=== PATIENT | female | born 1995 | race Caucasian/White ===

== ENCOUNTER 2018-02-13 00:01 | Emergency (ER) | payer BC, MEDICAID ==
[2018-02-13] MEDS ORDERED: METOCLOPRAMIDE HCL ORAL SOLN 10 MG/10 ML UDCUP PO ONE (02:23)
[2018-02-13] MEDS ORDERED: MAG HYDROX/AL HYDROX/SIMETH SUSP 30 ML UDCUP PO ONE (02:23)
[2018-02-13] MEDS ORDERED: LIDOCAINE 2% VISCOUS SOLN 20 ML UDCUP PO ONE (02:23)
--- NOTE | 2018-02-13 02:29 | ER Document Report ---
ED General - General Chief Complaint: Abdominal Pain Stated Complaint: ABDOMINAL PAIN Time Seen by Provider: 02/13/18 02:17 TRAVEL OUTSIDE OF THE [place] IN LAST 30 DAYS: No - HPI Notes: Patient is a 23-year-old female who presents to the ED complaining of epigastric pain 1 day. Patient states that her pain is made worse after eating barbecue. Patient states that she also has increased burning sensation when she lays flat. Patient states the pain does not radiate otherwise. Patient has not been taking any medicines for her symptoms. She did have one episode of vomiting this morning after eating a barbecue. Patient states that she has had a decreased appetite. She is urinating normally and having normal bowel movements. She denies any drug allergies or IV drug use. + smoker. Denies any other significant past medical history. Denies any headache, fever, URI, sore throat, chest pain, palpitations, syncope, cough, shortness of breath , wheeze, dyspnea, diarrhea, urinary retention, dysuria, hematuria, back pain, loss of control of bowel or bladder, numbness/tingling, saddle anesthesia, muscle paralysis/weakness, or rash. - Related Data Allergies/Adverse Reactions: No Known Allergies Allergy (Verified 03/20/16 12:20) Past Medical History - Social History Smoking Status: Current Some Day Smoker Chew tobacco use (# tins/day): No Frequency of alcohol use: None Drug Abuse: None Family History: Reviewed & Not Pertinent Patient has suicidal ideation: No Patient has homicidal ideation: No - Past Medical History Cardiac Medical History: Denies: Hx Hypertension Renal/ Medical History: Denies: Hx Peritoneal Dialysis Past Surgical History: Denies: Hx Hysterectomy - Immunizations Hx Diphtheria, Pertussis, Tetanus Vaccination: Yes Review of Systems - Review of Systems -: Yes All other systems reviewed and negative Physical Exam - Notes Notes: PHYSICAL EXAMINATION: GENERAL: Well-appearing, well-nourished and in no acute distress. HEAD: Atraumatic, normocephalic. EYES: Pupils equal round and reactive to light, extraocular movements intact, sclera anicteric, conjunctiva are normal. ENT: Nares patent and without discharge. oropharynx clear without exudates. No tonsilar hypertrophy or erythema. Moist mucous membranes. NECK: Normal range of motion, supple without lymphadenopathy LUNGS: Breath sounds clear to auscultation bilaterally and equal. No wheezes rales or rhonchi. HEART: Regular rate and rhythm without murmurs, rubs, gallops. ABDOMEN: Soft, nondistended abdomen. No guarding, no rebound. No masses appreciated. Normal bowel sounds present. No CVA tenderness bilaterally. + mild tenderness to the epigastrum. Segura negative. No tenderness at McBurney. Extremities: No cyanosis, clubbing, or edema b/l. Peripheral pulses 2+. Capillary refill less than 3 seconds. NEUROLOGICAL: Normal speech, normal gait. Normal sensory, motor exams PSYCH: Normal mood, normal affect. SKIN: Warm, Dry, normal turgor, no rashes or lesions noted. Course - Re-evaluation Re-evalutation: 02/13/18 04:30 Patient is an afebrile, well-hydrated, 23-year-old female who presents to the ED with epigastric pain, suspect probable GERD. Vitals are acceptable. PE is otherwise unremarkable. CBC, CMP, lipase, hCG, chest x-ray were unremarkable for any acute pathology. Patient's abdomen was soft and only tender in the epigastrium without Segura sign or tenderness at McBurney point. Patient is tolerating p.o. without difficulties. Patient was given a GI cocktail which did improve her symptoms. Low suspicion/risk for acute appendicitis, bowel obstruction, acute cholecystitis, acute cholangitis, perforated diverticulitis, incarcerated hernia, pancreatitis, perforated ulcer, peritonitis, sepsis, pelvic inflammatory disease, ectopic , tubo-ovarian abscess, ovarian torsion, or other systemic emergent condition at this time. Patient is aware that her condition can change from initial presentation and she needs to monitor symptoms closely and seek medical attention if any acute changes. I will send her home with a prescription for omeprazole as well as Carafate. Conservative measures otherwise for symptoms. Recheck with your PCM in 3-5 days. Consider consult with a automotive designer. Return to the ED with any worsening/concerning symptoms otherwise as reviewed in discharge. Patient is in agreement. - Laboratory Result Diagrams: 02/13/18 02:37 02/13/18 02:37 Laboratory results interpreted by me: 02/13/18 02:37 WBC 12.2 H Discharge - Discharge Clinical Impression: Epigastric abdominal pain Condition: Stable Disposition: HOME, SELF-CARE Instructions: Low-Fat Diet ([facility]) Additional Instructions: Maintain adequate fluid and food intake [place] diet ([facility].[employer] Bananas, rice, apples, toast, etc Avoid eating/drinking 2 hours before bed time Avoid spices, alcohol, caffeine, or other triggers Zofran as needed tylenol if needed Monitor for any worsening symptoms Make sure you are staying hydrated enough to urinate and have normal BM's Recheck with your PCM in 3-5 days Consider consult with Gastroenterology for ongoing/worsening symptoms Return to the ED with any worsening symptoms and/or development of fever, headache, chest pain, palpitations, syncope, shortness of breath, trouble breathing, abdominal pain, n/v/d, blood in stool/urine, weakness, or other worsening symptoms that are concerning to you. Prescriptions: Omeprazole 20 mg PO DAILY #30 tablet. Ondansetron [Zofran Odt 4 mg Tablet] 1 - 2 tab PO Q4H PRN #15 tab.rapdis PRN Reason: For Nausea/Vomiting Sucralfate [Carafate] 1 gm PO QID PRN #420 ml PRN Reason: Forms: Smoking Cessation Education, Return to Work Referrals: CELY MANCINI MD [ACTIVE STAFF] - Follow up as needed TAMRA GIRARD MD [ACTIVE STAFF] - Follow up as needed
[2018-02-13 02:55] LABS: ABSOLUTE EOSINOPHILS # (AUTO) 0.1 10^3/uL (0.0-0.6); ABSOLUTE LYMPHOCYTES (AUTO) 4.2 10^3/uL (0.5-4.7); ABSOLUTE MONOCYTES (AUTO) 0.8 10^3/uL (0.1-1.4); ABSOLUTE NEUT (AUTO) 7.2 10^3/uL (1.7-8.2); BASOPHILS % (AUTO) 0.4 % (0-2); EOSINOPHILS % (AUTO) 0.4 % (0-6); HEMATOCRIT 42.3 % (36.0-47.0); HEMOGLOBIN 14.4 g/dL (12.0-15.5); MEAN CORPUSCULAR HEMOGLOBIN 29.3 pg (27.0-33.4); MEAN CORPUSCULAR HGB CONC 34.1 g/dL (32.0-36.0); MEAN CORPUSCULAR VOLUME 86 fl (80-97); MONOCYTES % (AUTO) 6.6 % (3-13); PLATELET COUNT 353 10^3/uL (150-450); RED BLOOD COUNT 4.92 10^6/uL (3.72-5.28); RED CELL DISTRIBUTION WIDTH 12.9 % (11.5-14.0); SEGMENTED NEUTROPHILS % (AUTO) 58.6 % (42-78); TOTAL CELLS COUNTED % (AUTO) 100 %; WHITE BLOOD COUNT 12.2 10^3/uL (4.0-10.5)
[2018-02-13 03:15] LABS: ALANINE AMINOTRANSFERASE 32 U/L (9-52); ALBUMIN 4.8 g/dL (3.5-5.0); ALKALINE PHOSPHATASE 52 U/L (38-126); ANION GAP 12 (5-19); ASPARTATE AMINO TRANSFERASE 19 U/L (14-36); BILIRUBIN,DIRECT 0.3 mg/dL (0.0-0.4); BILIRUBIN,TOTAL 0.5 mg/dL (0.2-1.3); BLOOD UREA NITROGEN 11 mg/dL (7-20); CALCIUM 10.2 mg/dL (8.4-10.2); CARBON DIOXIDE 29 mmol/L (22-30); CHLORIDE 102 mmol/L (98-107); GLUCOSE 90 mg/dL (75-110); LIPASE 110.5 U/L (23-300); POTASSIUM 4.8 mmol/L (3.6-5.0); SODIUM 142.9 mmol/L (137-145); TOTAL PROTEIN 8.1 g/dL (6.3-8.2)
--- NOTE | 2018-02-13 04:00 | RADIOLOGY REPORT (SQ) ---
EXAM DESCRIPTION: CHEST 2 VIEWS CLINICAL HISTORY: 23 years Female, epigastric pain COMPARISON: None. NUMBER OF VIEWS/TECHNIQUE: 2, PA and Lateral LIMITATIONS: None. FINDINGS: Normal lung volume. Clear parenchyma. Normal cardiac silhouette. Intact bony thorax. IMPRESSION: No acute cardiopulmonary findings.
[2018-02-13 04:37] VITALS: BP 114/66
== END 2018-02-13 04:37 | disposition home or self-care (01) ==
LOC: ER 00:01
DX: R10.13 Epigastric pain (principal); R63.0 Anorexia; R11.10 Vomiting, unspecified; F17.200 Nicotine dependence, unspecified, uncomplicated
CPT/HCPCS: 99284; 36415; 83690; 84703; 85025; 80053; 71046; J3490

== ENCOUNTER 2018-12-17 17:14 | Emergency (ER) | payer SELFPAY ==
[2018-12-17 17:29] VITALS: BP 107/62
--- NOTE | 2018-12-17 17:51 | ER Document Report ---
ED ENT - General Chief Complaint: Sore Throat Stated Complaint: SORE THROAT Time Seen by Provider: 12/17/18 17:36 Mode of Arrival: Ambulatory Information source: Patient Notes: 23-year-old female presents to ED for complaint of sore throat fever cough times 3 days. She states she had vomited one time today. 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 She states that her boss told her she looked sick and she needed to get checked out. States her last menstrual period started today. TRAVEL OUTSIDE OF THE [place] IN LAST 30 DAYS: No - HPI Patient complains to provider of: Throat problem Onset: Other Onset/Duration: Gradual - 3 days Quality of pain: Achy, Sharp Severity: Moderate Pain Level: 2 Context: Recent Illness Location of pain: Nose, Sinus, Throat Associated symptoms: Chills, Fever, Runny nose, Sinus drainage, Sore throat, Other - vomited x 1 today Similar symptoms previously: Yes Recently seen / treated by doctor: No - Related Data Allergies/Adverse Reactions: No Known Allergies Allergy (Verified 03/20/16 12:20) Past Medical History - General Information source: Patient - Social History Smoking Status: Current Some Day Smoker - 1 cigarette a month Cigarette use (# per day): Yes - 1 cigarette a month Chew tobacco use (# tins/day): No Smoking Education Provided: Yes - 4 minutes Frequency of alcohol use: Occasional Drug Abuse: None 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 Lives with: Parents Family History: Reviewed & Not Pertinent Patient has suicidal ideation: No Patient has homicidal ideation: No - Past Medical History Cardiac Medical History: Reports: None Pulmonary Medical History: Reports: None EENT Medical History: Reports: None Neurological Medical History: Reports: None Endocrine Medical History: Reports: None Renal/ Medical History: Reports: None Malignancy Medical History: Reports: None GI Medical History: Reports: None Musculoskeletal Medical History: Reports None Skin Medical History: Reports None Psychiatric Medical History: Reports: None Traumatic Medical History: Reports: None Infectious Medical History: Reports: None Surgical Hx: Negative Past Surgical History: Reports: None - Immunizations Immunizations up to date: Yes Hx Diphtheria, Pertussis, Tetanus Vaccination: Yes Review of Systems - Review of Systems Constitutional: Fever, Recent illness EENT: Ear pain, Nose discharge, Throat pain Cardiovascular: No symptoms reported Respiratory: Cough Gastrointestinal: No symptoms reported Genitourinary: No symptoms reported Female Genitourinary: No symptoms reported Musculoskeletal: No symptoms reported Skin: No symptoms reported Hematologic/Lymphatic: No symptoms reported Neurological/Psychological: No symptoms reported -: Yes All other systems reviewed and negative Physical Exam - Vital signs Vitals: Temp Pulse Resp BP Pulse Ox 98.3 F 68 16 107/62 100 12/17/18 17:28 12/17/18 17:28 12/17/18 17:28 12/17/18 17:28 12/17/18 17:28 Interpretation: Normal - General General appearance: Appears well, Alert - HEENT Head: Normocephalic, Atraumatic Eyes: Normal Pupils: PERRL Ears: Normal External canal: Normal Tympanic membrane: Normal Sinus: Normal Nasal: Purulent discharge, Swelling Mouth/Lips: Normal Mucous membranes: Normal Pharynx: Post nasal drainage Neck: Normal - Respiratory Respiratory status: No respiratory distress Chest status: Nontender Breath sounds: Nonproductive cough Chest palpation: Normal - Cardiovascular Rhythm: Regular Heart sounds: Normal auscultation Murmur: No - Abdominal Inspection: Normal Distension: No distension Bowel sounds: Normal Tenderness: Nontender Organomegaly: No organomegaly - Back Back: Normal, Nontender - Extremities General upper extremity: Normal inspection, Nontender, Normal color, Normal ROM, Normal temperature General lower extremity: Normal inspection, Nontender, Normal color, Normal ROM, Normal temperature, Normal weight bearing. No: Neal's sign - Neurological Neuro grossly intact: Yes Cognition: Normal Orientation: AAOx4 Tim Coma Scale Eye Opening: Spontaneous [place] Coma Scale Verbal: Oriented [place] Coma Scale Motor: Obeys Commands [place] Coma Scale Total: 15 Speech: Normal Motor strength normal: LUE, RUE, LLE, RLE Sensory: Normal - Psychological Associated symptoms: Normal affect, Normal mood - Skin Skin Temperature: Warm Skin Moisture: Dry Skin Color: Normal Course - Vital Signs Vital signs: Temp Pulse Resp BP Pulse Ox 98.3 F 68 16 107/62 100 12/17/18 17:28 12/17/18 17:28 12/17/18 17:28 12/17/18 17:28 12/17/18 17:28 Discharge - Discharge Clinical Impression: Sore throat (viral) URI (upper respiratory infection) Qualifiers: URI type: unspecified viral URI Qualified Code(s): J06.9 - Acute upper respiratory infection, unspecified Condition: Stable Disposition: HOME, SELF-CARE Instructions: Acetaminophen, Family Physicians / Practices, Use of [id number] Ibuprofen ([facility]) Additional Instructions: SORE THROAT: Sore throats may be caused by viruses, bacteria, or fungi. Most are due to a virus, and must get better on their own. Bacterial sore throats, particularly those due to "strep," need treatment with antibiotics. If an antibiotic is prescribed, be sure to take the medication for a full 10 days. Failure to take the antibiotic can result in complications such as rheumatic fever. Sometimes, an injection of antibiotics is given instead of pills or liquid. This single "shot" is equal in effectiveness to the oral medication. To relieve symptoms, take acetaminophen for pain. Sip clear liquids frequently, or eat popsicles or ice chips. Anesthetic sprays or lozenges may help. Make sure the air in the room is not too dry. Avoid using decongestants or antihistamines. Call the doctor if there is no improvement in two days, or if you have difficulty breathing, increasing throat pain, high fever, rash, or frequent vomiting. UPPER RESPIRATORY ILLNESS: You have a viral infection of the respiratory passages -- a "cold." This common infection causes nasal congestion, drainage, and often sore throat and cough. It is highly contagious. The disease usually lasts about 10 to 14 days. There is no "cure" for the viral infection -- it must run its course. If there is a complication, such as bacterial infection in the nose, sinuses, middle ear, or bronchial tubes, antibiotics may be required. The antibiotics won't affect the virus. Drink plenty of fluids. A humidifier may help. An expectorant medication or decongestant may make you more comfortable. Use acetaminophen or ibuprofen for fever or aches. See the doctor if fever persists over two days, if there is any significant worsening of your symptoms, or if you simply fail to improve as expected. USE OF ACETAMINOPHEN (Tylenol): Acetaminophen may be taken for pain relief or fever control. It's much safer than aspirin, offering a wider range of "safe" dosages. It is safe during . Some brand names are Tylenol, Panadol, Datril, Anacin 3, Tempra, and Liquiprin. Acetaminophen can be repeated every four hours. The following are maximum recommended dosages: >89 pounds or adults 650 mg to 900 mg Acetaminophen can be repeated every four hours. Maximum dose not to exceed 4000 mg a day. SMOKING: If you smoke, you should stop smoking. The tar and chemicals in cigarette smoke are harmful. Smoking has been shown to cause: emphysema chronic bronchitis lung cancer mouth and throat cancer stomach and pancreas cancer premature aging defects In addition, smoking increases ear and lung infections in children of smokers. You can use Chloraseptic spray for your sore throat, salt and soda solution gargles will help with your sore throat, you can also use [id number] cough and cold medication for your upper respiratory infection. Please follow-up with your primary doctor and stop smoking. Use Tylenol or Motrin for your discomfort. Salt and soda solution 1 quart of water 1 tablespoon of salt 1 teaspoon of baking soda Mixed 3 ingredients together and boil for 1 minute Placed in a covered quart jar Use 1/2 ounce of cold solution to gargle 3 times a day FOLLOW-UP CARE: If you have been referred to a physician for follow-up care, call the physicians office for an appointment as you were instructed or within the next two days. If you experience worsening or a significant change in your symptoms, notify the physician immediately or return to the Emergency Department at any time for re-evaluation. Forms: Return to Work
== END 2018-12-17 19:41 | disposition home or self-care (01) ==
LOC: ER 17:14
DX: J02.8 Acute pharyngitis due to other specified organisms (principal); B97.89 Other viral agents as the cause of diseases classified elsewhere; R50.9 Fever, unspecified; R05 Cough; R11.10 Vomiting, unspecified; R09.89 Other specified symptoms and signs involving the circulatory and respiratory systems; R09.82 Postnasal drip; F17.210 Nicotine dependence, cigarettes, uncomplicated; Z71.6 Tobacco abuse counseling
CPT/HCPCS: 87070; 87077; 87880; 99282

== ENCOUNTER 2018-12-26 13:41 | Emergency (ER) | payer SELFPAY ==
[2018-12-26 13:48] VITALS: BP 122/75
[2018-12-26] MEDS ORDERED: ONDANSETRON 4 MG TAB.RAPDIS PO ONE (14:14)
--- NOTE | 2018-12-26 14:14 | ER Document Report ---
ED General - General Chief Complaint: Nausea/Vomiting Stated Complaint: VOMITING Time Seen by Provider: 12/26/18 14:07 Primary Care Provider: ALICIA FLORES MD [ACTIVE STAFF] - Follow up as needed (or your primary care. ) Notes: Patient is a 23-year-old female that presents to the emergency department for chief complaint of nausea, vomiting and diarrhea. 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 She is had some mild abdominal cramping, but denies having any severe abdominal pain or localized pain. She currently rates her pain as a 1 out of 10. Denies any dysuria, hematuria, urinary frequency, vaginal bleeding or discharge. She does not believe that she is . Past Medical History: Denies chronic medical conditions Past Surgical History: Denies surgical history Social History: Admits to smoking cigarettes, denies alcohol or drug use. Family History: Reviewed and noncontributory for presenting illness Allergies: Reviewed, see documented allergy list. REVIEW OF SYSTEMS: Other than noted above, the 12 point review of systems was reviewed with the patient and were negative, all pertinent findings are included in the HPI. PHYSICAL EXAMINATION: Vital signs reviewed, nursing noted reviewed. GENERAL: Appears uncomfortable, but in no acute distress HEAD: Atraumatic, normocephalic. EYES: Eyes appear normal, extraocular movements intact, sclera anicteric, conjunctiva are normal. ENT: nares patent, oropharynx clear without exudates. Moist mucous membranes. NECK: Normal range of motion, supple without lymphadenopathy LUNGS: Breath sounds clear to auscultation bilaterally and equal. No wheezes rales or rhonchi. HEART: Heart rate mildly tachycardic, regular rhythm ABDOMEN: Soft, mild discomfort with palpation, no focal tenderness, normoactive bowel sounds. No rebound, guarding, or rigidity. No masses appreciated. EXTREMITIES: Nontender, good range of motion, no pitting or edema. NEUROLOGICAL: No focal neurological deficits. Moves all extremities spontaneously Motor and sensory grossly intact on exam. PSYCH: Normal mood, normal affect. SKIN: Warm, Dry, normal turgor, no rashes or lesions noted on exposed skin TRAVEL OUTSIDE OF THE [place] IN LAST 30 DAYS: No - Related Data Allergies/Adverse Reactions: No Known Allergies Allergy (Verified 12/26/18 13:43) Past Medical History - Social History Smoking Status: Current Every Day Smoker Family History: Reviewed & Not Pertinent - Past Medical History Cardiac Medical History: Denies: Hx Hypertension Renal/ Medical History: Denies: Hx Peritoneal Dialysis Past Surgical History: Denies: Hx Hysterectomy - Immunizations Immunizations up to date: Yes Hx Diphtheria, Pertussis, Tetanus Vaccination: Yes Physical Exam - Vital signs Vitals: Temp Pulse Resp BP Pulse Ox 98.9 F 114 H 16 122/75 95 12/26/18 13:47 12/26/18 13:47 12/26/18 13:47 12/26/18 13:47 12/26/18 13:47 Course - Re-evaluation Re-evalutation: Patient seen and examined vital signs reviewed. Patient was treated with p.o. Zofran, patient did not want an IV at this time, she was tolerating fluids after Zofran Results were reviewed when available and demonstrated negative urine testing, negative flu, and negative hCG The patient was re-evaluated and was stable, and improved Evaluation was most consistent with nausea, vomiting and diarrhea, advised hydration, given Zofran to take as needed for vomiting and advised follow-up Results were discussed with the patient at this point, after careful consideration I feel that that patient can be discharged from the emergency department, the patient was educated treatments and reasons to return to the emergency department based on their presumed diagnosis as noted above, they were advised to followup with a primary care physician in 2-3 days. Patient was agreeable to plan of care. *Note is created using voice recognition software and may contain spelling, syntax or grammatical errors. Laboratory 12/26/18 12/26/18 14:20 14:30 Urine Color YELLOW Urine Appearance CLOUDY Urine pH 5.0 Ur Specific [place] 1.031 Urine Protein NEGATIVE Urine Glucose (UA) NEGATIVE Urine Ketones 20 H Urine Blood NEGATIVE Urine Nitrite NEGATIVE Urine Bilirubin NEGATIVE Urine Urobilinogen NEGATIVE Ur Leukocyte Esterase NEGATIVE Urine WBC (Auto) 28 Urine RBC (Auto) 30 Squamous Epi Cells Auto 45 Urine Mucus (Auto) MANY Urine Ascorbic Acid NEGATIVE Urine HCG, Qual NEGATIVE Influenza A (Rapid) NEGATIVE Influenza B (Rapid) NEGATIVE - Vital Signs Vital signs: Temp Pulse Resp BP Pulse Ox 98.9 F 114 H 16 122/75 95 12/26/18 13:47 12/26/18 13:47 12/26/18 13:47 12/26/18 13:47 12/26/18 13:47 - Laboratory Laboratory results interpreted by me: 12/26/18 14:20 Urine Ketones 20 H Discharge - Discharge Clinical Impression: Nausea and vomiting Qualifiers: Vomiting type: unspecified Vomiting Intractability: unspecified Qualified Code(s): R11.2 - Nausea with vomiting, unspecified Diarrhea Qualifiers: Diarrhea type: unspecified type Qualified Code(s): R19.7 - Diarrhea, unspecified Condition: Stable Disposition: HOME, SELF-CARE Instructions: Vomiting ([facility]) Additional Instructions: Please return to the emergency department if you have any worsening, or concern of your symptoms. Please return to the emergency department if you develop chest pain, difficulty breathing, severe abdominal pain, or ongoing vomiting. Please follow-up with your primary care physician in 2-3 days and any other recommended physicians. If prescribed, take all medications as directed. If you have any questions or concerns do not hesitate to return the emergency department for evaluation. Prescriptions: Ondansetron [Zofran Odt 4 mg Tablet] 1 tab PO Q8H PRN #15 tab.rapdis PRN Reason: For Nausea/Vomiting Referrals: ALICIA FLORES MD [ACTIVE STAFF] - Follow up as needed (or your primary care. )
[2018-12-26 14:41] LABS: APPEARANCE,URINE CLOUDY; BILIRUBIN,URINE NEGATIVE (NEGATIVE); GLUCOSE, URINE NEGATIVE (NEGATIVE); KETONES,URINE 20 mg/dL (NEGATIVE); LEUKOCYTE ESTERASE,URINE NEGATIVE (NEGATIVE); NITRITE,URINE NEGATIVE (NEGATIVE); PROTEIN,URINE NEGATIVE (NEGATIVE); URINE SPECIFIC GRAVITY 1.031; UROBILINOGEN,URINE NEGATIVE mg/dL (<2.0)
[2018-12-26 14:42] LABS: COLOR,URINE YELLOW
[2018-12-26 15:10] LABS: A TYPE INFLUENZA AG NEGATIVE (NEGATIVE); B INFLUENZA AG NEGATIVE (NEGATIVE)
== END 2018-12-26 16:04 | disposition home or self-care (01) ==
LOC: ER 13:41
DX: R11.2 Nausea with vomiting, unspecified (principal); R19.7 Diarrhea, unspecified; R05 Cough; J02.9 Acute pharyngitis, unspecified; R10.9 Unspecified abdominal pain; F17.210 Nicotine dependence, cigarettes, uncomplicated
CPT/HCPCS: 99284; 87086; 81025; 81001; 87804; S0119

== ENCOUNTER 2019-04-23 08:35 | Emergency (ER) | payer MEDICAID, OTHER ==
[2019-04-23 09:01] VITALS: BP 126/71
[2019-04-23] MEDS ORDERED: HYDROCODONE/ACETAMINOPHEN 5-325 MG TABLET PO ONE (09:25)
[2019-04-23] MEDS ORDERED: DIPH/PERTUSS(ACELL)/TETANUS VAC/PF 0.5 ML SYR (>=10YO) IM ONE (09:37)
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
== END 2019-04-23 10:36 | disposition home or self-care (01) ==
LOC: ER 08:35
DX: S83.92XA Sprain of unspecified site of left knee, initial encounter (principal); S09.90XA Unspecified injury of head, initial encounter; S80.212A Abrasion, left knee, initial encounter; M25.562 Pain in left knee; R51 Headache; V87.7XXA Person injured in collision between other specified motor vehicles (traffic), initial encounter; Z87.891 Personal history of nicotine dependence
CPT/HCPCS: 99284; 90471; 73564; 70450; 72125; 90715; L1830

== ENCOUNTER 2019-07-28 17:34 | Emergency (ER) | payer SELFPAY ==
[2019-07-28] MEDS ORDERED: ACETAMINOPHEN 325 MG TABLET PO ONE (17:48)
[2019-07-28] MEDS ORDERED: IBUPROFEN 600 MG TABLET PO ONE (17:50)
[2019-07-28 17:51] VITALS: BP 124/76
[2019-07-28 18:23] LABS: A TYPE INFLUENZA AG NEGATIVE (NEGATIVE); B INFLUENZA AG NEGATIVE (NEGATIVE)
[2019-07-28] MEDS ORDERED: DEXAMETHASONE SOD PHOS INJ 10 MG/1 ML VIAL IM ONE (18:24)
[2019-07-28] MEDS ORDERED: PENICILLIN G BENZATHINE 1.2 MILLION UNIT/2 ML DISP.SYRIN IM ONE (18:24)
--- NOTE | 2019-07-28 18:28 | ER Document Report ---
HPI - HPI Time Seen by Provider: 07/28/19 17:48 Pain Level: 5 Context: Patient is a 24-year-old female who presents the emergency department with a chief complaint of a sore throat, fever, body aches. Her symptoms started 4 days ago. 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 No past medical history. Does not take any medications. She has not taken any ibuprofen or Tylenol. - EENT EENT: REPORTS: Sore Throat, Ear Pain. DENIES: Nasal Drainage-Clear, Nasal Drainage-Purulent - NEURO Neurology: REPORTS: Headache - RESPIRATORY Respiratory: DENIES: Trouble Breathing, Coughing - GASTROINTESTINAL Gastrointestinal: DENIES: Abdominal Pain, Nausea, Patient vomiting, Diarrhea - REPRODUCTIVE Reproductive: DENIES: : - MUSCULOSKELETAL Musculoskeletal: DENIES: Extremity pain - DERM Skin Color: Normal Skin Problems: None Past Medical History - Social History Smoking Status: Former Smoker Chew tobacco use (# tins/day): No Frequency of alcohol use: Social Drug Abuse: None Family History: Reviewed & Not Pertinent Patient has suicidal ideation: No Patient has homicidal ideation: No - Past Medical History Cardiac Medical History: Denies: Hx Hypertension Renal/ Medical History: Denies: Hx Peritoneal Dialysis Past Surgical History: Denies: Hx Hysterectomy - Immunizations Immunizations up to date: Yes Hx Diphtheria, Pertussis, Tetanus Vaccination: Yes Vertical Provider Document - CONSTITUTIONAL Agree With Documented VS: Yes Exam Limitations: No Limitations General Appearance: No Apparent Distress - INFECTION CONTROL TRAVEL OUTSIDE OF THE [place] IN LAST 30 DAYS: No - HEENT HEENT: Atraumatic, Normocephalic, PERRLA, Pharyngeal Exudate, Pharyngeal Tenderness, Pharyngeal Erythema. negative: Tympanic Membrane Red, Tympanic Membrane Bulging - NECK Neck: Normal Inspection, Lymphadenopathy-Left, Lymphadenopathy-Right - RESPIRATORY Respiratory: No Respiratory Distress, Wheezing - Right lobes on expiratory - CARDIOVASCULAR Cardiovascular: Regular Rate, Regular Rhythm Pulses: Normal: Radial - MUSCULOSKELETAL/EXTREMETIES Musculoskeletal/Extremeties: FROM - NEURO Level of Consciousness: Awake, Alert, Appropriate Motor/Sensory: No Motor Deficit, No Sensory Deficit - DERM Integumentary: Warm, Dry, No Rash Course - Re-evaluation Re-evalutation: 07/28/19 18:26 Presentation of several days of sore throat in an otherwise well-appearing patient. Rapid strep is positive. History and exam are not consistent with a retropharyngeal abscess or peritonsillar abscess. Airway is patent. No difficulty handling oral secretions. Vitals within normal limits. Patient has been treated with an IM dose of penicillin. At this time will discharge with return precautions and follow-up recommendations. Verbal discharge instructions given a the bedside and opportunity for questions given. Medication warnings reviewed. Patient is in agreement with this plan and has verbalized understanding of return precautions and the need for primary care follow-up in the next few days. - Vital Signs Vital signs: Temp Pulse Resp BP Pulse Ox 101.8 F H 96 16 124/76 98 07/28/19 17:45 07/28/19 17:45 07/28/19 17:45 07/28/19 17:45 07/28/19 17:45 Discharge - Discharge Clinical Impression: Strep pharyngitis, Wheezing on exhalation Condition: Stable Disposition: HOME, SELF-CARE Additional Instructions: You have been diagnosed with strep throat based on a positive strep test. You have been treated with a dose of penicillin here in the emergency department and do not need any additional antibiotics. You have also been given a dose of steroids to help with your throat discomfort. Please continue to take ibuprofen 600 mg every 6 hours or Tylenol 1000 mg every 6 hours as needed for throat discomfort. You can also gargle with salt water. Continue to drink plenty of fluids. Follow-up with your primary care doctor in the next several days. Re turn if you become unable to swallow, have difficulty breathing, pass out, have persistent vomiting that prevents you from being able to tolerate fluids, or have any other symptoms that are concerning to you. You are also being sent home with an albuterol inhaler. You can take 1 puff every 4-6 hours as needed for shortness of breath. Forms: Return to Work Referrals: [facility] [Provider Group] - Follow up in 3-5 days
[2019-07-28] MEDS ORDERED: ALBUTEROL SULFATE HFA (90 MCG/PUFF) 8 GM MDI (1 MDI/ER DISP) IH PRN (18:41)
== END 2019-07-28 19:06 | disposition home or self-care (01) ==
LOC: ER 17:34
DX: J02.0 Streptococcal pharyngitis (principal); R06.2 Wheezing; R50.9 Fever, unspecified; M79.10 Myalgia, unspecified site
CPT/HCPCS: 99283; 96372; 87880; 87804; J0561; J1100; J3490